=== PATIENT | female | born 1970 | race Caucasian/White ===

== ENCOUNTER → 2024-05-10 14:42 | Outpatient (REF) | payer OTHER, SELFPAY ==
--- NOTE | 2024-05-10 15:55 | CARDSERVLU ---
Echocardiogram with [facility] completed after protocol screening completed. Allergies verified.
Patent IV site: ___R AC__
IV site flushed with 0.9% NaCl pre and post administration.
Diluted bolus method utilized to enhance visualization of ventricular stone.
Total volume given: __1.5__ mL
Patient tolerated all procedures well without complications.
== END ==
LOC: RCS 14:42
PROVIDERS: ATTENDING PHYSICIAN Internal Medicine Cardiovascular Disease; FAMILY PHYSICIAN Internal Medicine
DX: R42 Dizziness and giddiness (principal); R06.02 Shortness of breath
CPT/HCPCS: 93306; Q9950

== ENCOUNTER 2024-09-05 06:35 | Day surgery (SDC) | payer OTHER, SELFPAY | END 2024-09-05 14:46 | disposition home or self-care (01) | LOC: GI 06:35 | PROVIDERS: ATTENDING PHYSICIAN Internal Medicine Gastroenterology | DX: Z12.11 Encounter for screening for malignant neoplasm of colon (principal); K57.30 Diverticulosis of large intestine without perforation or abscess without bleeding; R11.2 Nausea with vomiting, unspecified; R14.0 Abdominal distension (gaseous); K29.50 Unspecified chronic gastritis without bleeding | CPT/HCPCS: 45380; 43239; 88305; 88342 ==

== ENCOUNTER → 2025-01-03 13:43 | Outpatient (REF) | payer OTHER, SELFPAY | LOC: HWWDC 13:43 | PROVIDERS: ATTENDING PHYSICIAN Internal Medicine | DX: Z12.31 Encounter for screening mammogram for malignant neoplasm of breast (principal) | CPT/HCPCS: 77063; 77067 ==

== ENCOUNTER 2025-01-18 13:32 | Emergency (ER) | payer OTHER, SELFPAY ==
[2025-01-18 13:36] VITALS: BP 107/86
[2025-01-18 13:58] LABS: Hematocrit 50.0 % (37.0-47.0); Hemoglobin 16.4 g/dL (12.0-16.0); Mean Corp Hgb Conc. 32.8 g/dL (33.0-37.0); Mean Corpuscular Volume 89.8 fL (81.0-99.0); Nucleated Red Blood Cells % 0 %; Platelet Count 414 10^3/uL (130-400); Red Cell Dist. Width 12.4 % (11.5-14.5)
[2025-01-18 14:25] LABS: ALT (SGPT) 17 U/L (0-35); AST (SGOT) 19 U/L (14-36); Albumin 5.0 g/dl (3.5-5.0); Alkaline Phosphatase 97 U/L (38-126); Blood Urea Nitrogen 22 mg/dl (7-17); Calcium 9.7 mg/dl (8.4-10.2); Carbon Dioxide 30 mmol/L (22-30); Chloride 102 mmol/L (98-107); Glucose 103 mg/dl (70-99); Lipase 181 U/L (23-300); Potassium 4.3 mmol/L (3.5-5.1); Sodium 142 mmol/L (135-145); Total Protein 8.6 g/dl (6.3-8.2); eGFR > 60.00
--- NOTE | 2025-01-18 15:57 | ED.GENMED ---
History of Present Illness
General
Chief Complaint: Abdominal Pain
Source: patient
Exam Limitations: none
Time Seen by Provider: 01/18/25 15:34
Nursing documentation reviewed up to this point in time: agreed with
History of Present Illness
History of Present Illness:
54-year-old female presenting to the emergency department today with concerns of a stabbing sharp and achy pain to the right side manage of the right flank noticed bruising to the right flank as well as right lower quadrant the abdomen over the past
day or so. Symptoms ongoing for 2 days now. Denies similar symptoms in the past denies any trauma. Denies nausea vomiting or changes in bowel movements. No significant changes in urination.
Past History
Past History
ED Past Medical History: Other (migraine, she has as needed meds of Botox, Nurtec, amitriptyline, Flexeril or diazepam as well as Zofran at home)
ED Past Surgical History: Other (Breast reduction)
Social History
Tobacco: Non-smoker
Alcohol: Occasional
Drug: None
Personal:
Review of Systems
Review of Systems
Allergies reviewed?: Yes
All Other Systems: ROS reviewed and negative except as documented in HPI and ROS
Phy Exam
Physical Exam
Physical Exam:
GENERAL: Alert , in no apparent distress
EYE: pupils equal and reactive
NECK: Supple, no significant adenopathy.
ENT: o/p clr, mmm.
CARDIAC: Regular rate and rhythm .
LUNGS: Clear breath sounds bilaterally, no acute respiratory distress, no wheezes/rales/rhonchi
ABDOMEN: Ecchymosis and tenderness to the right flank as well as the right lower quadrant of the abdomen. Mild voluntary guarding left side of the abdomen is soft, without focal tenderness, no r/g, no cvat
NEUROLOGICAL: Alert and oriented, no focal neuro deficits
SKIN: Warm and dry, skin intact.
MUSCULOSKELETAL: No edema, well perfused.
PSYCH: Normal and appropriate interaction.
Course
Orders/Labs/Results
Orders:
Orders
01/18/25 13:46
Complete Blood Count/With Diff Urgent
Comprehensive Metabolic Panel Urgent
Lipase Urgent
01/18/25 15:49
CT Abd/Pel (IV only)-DH only Urgent
Comment:
Reason For Exam: right sided abd pain and flan kpa in
Ketorolac [Toradol] 15 mg IV NOW STA
01/18/25 16:01
Urinalysis Reflex To Culture Urgent
Date Specimen was Collected: 01/18/25
Time Specimen was Collected: 15:59
Urine Microscopic Reflex Cult Urgent
Urine Culture Urgent
DIO Source: U
Specimen Description:
Date Specimen was Collected: 01/18/25
Time Specimen was Collected: 15:59
01/18/25 19:22
Valacyclovir HCl [Valtrex] 1,000 mg PO ONCE ONE
Abnormal Lab Results
01/18/25 01/18/25
13:46 16:01
WBC 11.7 H 10^3/uL
(4.8-10.8)
RBC 5.57 H 10^6/uL
(4.20-5.40)
Hgb 16.4 H g/dL
(12.0-16.0)
Hct 50.0 H %
(37.0-47.0)
MCHC 32.8 L g/dL
(33.0-37.0)
Plt Count 414 H 10^3/uL
(130-400)
Absolute Lymphs (auto) 4.2 H 10^3/uL
(1.2-3.4)
Absolute Monos (auto) 0.8 H 10^3/uL
(0.1-0.6)
BUN 22 H mg/dl
(7-17)
Creatinine 1.1 H mg/dL
(0.6-1.0)
Glucose 103 H mg/dl
(70-99)
Total Bilirubin 1.8 H mg/dl
(0.2-1.3)
Total Protein 8.6 H g/dl
(6.3-8.2)
Leukocyte Esterase Rfl 1+ A
(Negative)
Urine Bacteria (Reflex) Few A
(Negative)
01/18/25 13:46
01/18/25 13:46
Vital Signs
Initial and Last Documented VS:
Initial Vital Signs
Temp Pulse Resp BP Pulse Ox
98.5 F 116 18 107/86 97
01/18/25 13:36 01/18/25 13:36 01/18/25 13:36 01/18/25 13:36 01/18/25 13:36
Last Documented Vital Signs
Temp Pulse Resp BP Pulse Ox
98.5 F 95 18 121/81 98
01/18/25 13:36 01/18/25 18:41 01/18/25 18:41 01/18/25 18:41 01/18/25 18:41
MDM/Problems Addressed
MDM/Problems Addressed:
54-year-old female presenting to the emergency department today with concerns of right-sided abdominal pain and also noticeable ecchymosis to the right flank and right lower quadrant. CT scan without any findings that would explain symptoms. Labs
unremarkable. Symptoms could be consistent with an early zoster rash considering very sensitive does not cross midline. Concerning this patient was started on valacyclovir advised for close outpatient follow-up. Return precautions given.
*Pulse Oximetry
SaO2: 97
Oxygen Mode of Delivery: Room air
Patient hypoxic: no (98)
*Critical Care Note
Total Time (30-74mins, 75-104mins- exclusive of procedures): Not Applicable
ED Attending Note
-
Portions of this chart may have been created with voice recognition software.� Occasional wrong word or��sound alike� substitutions may have occurred due to the inherent limitations of voice recognition software.
Discharge Plan
Departure
Patient Disposition: Home (Routine Discharge)
Date of Disposition: 01/18/25
Time of Disposition: 19:23
Patient with high blood pressure during this ER visit?: No
Condition: Good
Covid-19: Not Applicable
Discharge Problem:
Herpes zoster, Abdominal pain
Instructions: Shingles
Prescriptions:
New
valacyclovir 1 gram tablet
1,000 mg PO TID 7 Days Qty: 21 0RF
oxycodone-acetaminophen [Endocet] 5-325 mg tablet
1 tab PO Q8H PRN (Reason: Pain) Qty: 5 0RF
No Action
topiramate 100 MG tablet
100 mg PO DAILY
Patient Comments:
100 mg in the AM, and 200 in the evening
prochlorperazine maleate 10 MG tablet
10 mg PO Q8HPRN PRN (Reason: headaches and nausea) Qty: 20 0RF
cyclobenzaprine 10 MG tablet
10 mg PO TIDPRN PRN (Reason: migraines)
levothyroxine 100 MCG tablet
100 mcg PO DAILY
diazepam 5 MG tablet
5 mg PO HS
furosemide 20 MG tablet
20 mg PO DAILY Qty: 3 0RF
diclofenac sodium 75 MG tablet,delayed release (DR/EC)
75 mg PO BID Qty: 10 0RF
Referrals:
J Carlos Rene DO [Family Provider, Internal Medicine]
Activity Restrictions/Additional Instructions:
You came to the emergency department today with concerns of abdominal pain. You had a reassuring assessment and a general sense. This could be early zoster. Please take the prescribed medication and follow-up closely as an outpatient. Return for
any worsening, new or concerning symptoms.
Interventions
Interventions:
*Risk Screen - Suicide Last Done: 01/18/25 13:36
*General Assessment Last Done: 01/18/25 13:36
*Neglect/Abuse Screening Last Done: 01/18/25 13:36
*Nursing Disposition Last Done: 01/18/25 19:48
[facility] Last Done: 01/18/25 15:36
Discharge Date and Time
Discharge Date/Time: 01/18/25 19:49
Print Language: INDONESIAN
[2025-01-18] MEDS: TORADOL 15 MG IV (16:00)
[2025-01-18 16:16] LABS: Urine Character Clear (Clear)
[2025-01-18 16:26] LABS: Urine Red Blood Cell 0-2 /HPF (0-2)
[2025-01-18 18:41] VITALS: BP 121/81
[2025-01-18] MEDS: VALTREX 1000 MG PO (19:38)
== END 2025-01-18 19:49 | disposition home or self-care (01) ==
LOC: EMR 13:32
PROVIDERS: Emergency Medicine; Physician Assistant; EMERGENCY PHYSICIAN Emergency Medicine; FAMILY PHYSICIAN Internal Medicine
DX: B02.9 Zoster without complications (principal); G43.909 Migraine, unspecified, not intractable, without status migrainosus
CPT/HCPCS: 99284; 96374; 74177; 80053; 81003; 81015; 83690; 85025; 87086; Q9967